=== PATIENT | male | born 2000 | race Caucasian/White ===

== ENCOUNTER → 2019-10-04 | Outpatient (CLI) | payer BC ==
[2019-10-04 07:55] LABS: Basophils # (auto) 0 uL; Basophils % (auto) 0.7 % (0.0-2.0); Eosinophils # (auto) 0.1 uL; Eosinophils % (auto) 3.1 % (0.0-7.0); Hematocrit 47.8 % (41.0-53.0); Hemoglobin 16.6 g/dL (13.5-17.5); Lymphocytes # (auto) 1.2 uL; Lymphocytes % (auto) 31.3 % (10.0-50.0); Mean Corpuscular Hemoglobin 33.2 pg (28.0-32.0); Mean Corpuscular Hgb Conc. 34.8 g/dL (32.0-36.0); Mean Corpuscular Volume 95.5 fL (80.0-100.0); Monocytes # (auto) 0.4 uL; Monocytes % (auto) 9.5 % (0.0-12.0); Neutrophils # (auto) 2.1 uL; Neutrophils % (auto) 55.4 % (37.0-80.0); Nucleated Red Blood Cells % 0.2 %; Platelet Count (auto) 159 10^3/uL (140-450); Red Cell Distribution Width 12.5 % (11.8-14.3); White Blood Cell 3.7 10^3/uL (4.4-10.8)
[2019-10-04 08:42] LABS: Potassium 3.8 mmol/L (3.5-5.1)
[2019-10-04 08:51] LABS: Albumin 4.2 g/dL (3.4-5.0); BUN/Creatinine Ratio 17.8; Bilirubin, Total 1.3 mg/dL (0.2-1.0); Calcium 8.8 mg/dL (8.5-10.1); Total Protein 7.4 g/dL (6.4-8.2)
== END | disposition home or self-care (01) ==
LOC: LAB 07:16
PROVIDERS: ATTEND Internal Medicine
DX: M79.10 Myalgia, unspecified site (principal); R73.9 Hyperglycemia, unspecified; E78.5 Hyperlipidemia, unspecified; R00.2 Palpitations; R81 Glycosuria
CPT/HCPCS: 36415; 80053; 80061; 82306; 83036; 84439; 85025

== ENCOUNTER 2020-06-27 14:25 | Emergency (ER) | payer BC, OTHER ==
[~2020-06-27] VITALS: Ht 175.3 cm; Wt 86.2 kg
[2020-06-27 16:22] VITALS: BP 131/86
== END 2020-06-27 16:45 | disposition home or self-care (01) ==
LOC: ER 14:25
DX: U07.1 COVID-19 (principal); J02.9 Acute pharyngitis, unspecified
CPT/HCPCS: 36415; 71045; 87426

== ENCOUNTER 2021-08-06 17:52 | Emergency (ER) | payer OTHER ==
[~2021-08-06] VITALS: Ht 175.3 cm; Wt 86.2 kg
[2021-08-06 20:14] VITALS: BP 148/89
== END 2021-08-06 20:23 | disposition left against medical advice (07) ==
LOC: ER 17:52
DX: R50.9 Fever, unspecified (principal); R05.9 Cough, unspecified; Z53.21 Procedure and treatment not carried out due to patient leaving prior to being seen by health care provider; Z20.822 Contact with and (suspected) exposure to COVID-19
CPT/HCPCS: 36415; 71045; 87426